=== PATIENT | male | born 1940 | race Caucasian/White ===

== ENCOUNTER 2016-04-26 08:12 | Emergency (ER) | payer MEDICARE, BC ==
[2016-04-26 08:53] LABS: Hematocrit 37.6 % (42.0-52.0); Hemoglobin 12.3 gm/dL (13.5-18.0); Mean Cell Volume 93.5 fl (78-100); Mean Corpuscular Hemoglobin 30.6 pg (27-31); Mean Corpuscular Hgb Conc 32.7 g/dl (32-36); Mean Platelet Volume 9.8 fl (6.0-9.5); Neutrophil # 5.4 K/mm3 (1.3-6.0); Neutrophil % 54.2 % (42-75.0); Platelet Count 195 K/mm3 (150-450); Red Blood Count 4.02 M/mm3 (4.7-6.0); Red Cell Distribution Width 13.2 % (11.5-14.0)
[2016-04-26 09:02] LABS: Prothrombin Time (Patient) 11.4 Seconds (9.4-11.4)
[2016-04-26 09:03] LABS: INR 1.1 INR (0.90-1.10); Partial Thrombolplastin Time 26.1 Seconds (24-32)
[2016-04-26 09:10] LABS: ALT 17 U/L (19-67); AST 11 U/L (0-48); Albumin * 3.2 gm/dl (3.4-5.0); Alkaline Phosphatase * 90 U/L (50-170); Anion Gap 9.3 mmol/L (6.8-13.8); BUN/Creatinine Ratio 17.2 (9.0-21.6); Bilirubin, Total 0.5 mg/dL (0.0-1.1); Blood Urea Nitrogen 21 mg/dL (6-23); Ca. Corrected For Albumin 8.9 mg/dL (8.4-10.2); Calcium * 8.6 mg/dL (7.9-10.9); Carbon Dioxide 30.3 mmol/L (24-32.6); Chloride 109 mmol/L (97-106); Glucose * 92 mg/dL (70-110); Potassium 3.6 mmol/L (3.4-4.6); Sodium 145 mmol/L (132-142); Total Protein 5.9 gm/dL (6.2-8.2); Troponin I Less than 0.017 ng/ml (0.00-0.10)
[2016-04-26] MEDS ORDERED: NITROGLYCERIN 0.4 MG/TAB BTL SL ONE (10:22)
[2016-04-26] MEDS ORDERED: ACETAMINOPHEN 325 MG TABLET PO ONE (10:51)
[2016-04-26] MEDS ORDERED: ACETAMINOPHEN 325 MG TABLET ONE (10:53)
[2016-04-26 11:55] VITALS: BP 105/54
--- NOTE | 2016-04-26 12:09 | ERNOTE ---
Dizziness ER Record Date of Service: 04/26/16 Presenting Symptoms: other - low blood pressure Time Seen by Provider: 04/26/16 08:45 Source: patient Exam Limitations: no limitations Immunizations: IMMUNIZATION HX Immunizations Up to Date Yes History of Influenza Vaccine No Hx Pneumococcal Vaccination No Allergies/Adverse Reactions: Allergies Allergy/AdvReac Type Severity Reaction Status Date / Time aspirin Allergy Severe Other Verified 01/28/16 07:52 codeine [Codeine] Allergy Verified 01/28/16 07:52 labetalol Allergy Verified 01/28/16 07:52 Sulfa (Sulfonamide AdvReac Mild Muscle Pain Verified 01/28/16 07:52 Antibiotics) [Sulfa(Sulfonamide Antibiotics)] Home Medications: HOME MEDICATIONS Azithromycin [Zithromax] 250 mg PO DAILY 02/09/13 [Last Taken 08/05/15] Calcium Carb & Citrate/Vit D3 [Calcium + Vitamin D3 Caplet] 2 each PO DAILY [Last Taken 08/05/15] Fluticasone Propionate [Flovent Diskus] 220 mcg IH BID 02/09/13 [Last Taken 11/12] Mometasone Furoate [Nasonex] 2 spray NS DAILY 02/09/13 [Last Taken 08/05/15] Montelukast Sodium 10 mg PO DAILY 02/09/13 [Last Taken 08/05/15] Multivit-Min/FA/Lycopene/Lut [Centrum Silver Tablet] 1 each PO DAILY 02/09/13 [ Last Taken 08/05/15] Omeprazole 20 mg PO DAILY 02/09/13 [Last Taken 08/05/15] Potassium Chloride [Potassium Chloride 40 meq/15ml Liquid] 10 meq PO DAILY 02/09 [Last Taken 08/05/15] Ubidecarenone [Co Q-10] 30 mg PO DAILY 02/09/13 [Last Taken 08/05/15] predniSONE [Prednisone] 5 mg PO DAILY 02/09/13 [Last Taken 08/05/15] Diltiazem ER 240 mg PO DAILY 08/06/15 [Last Taken 08/05/15] Flecainide Acetate 100 mg PO DAILY PRN 08/06/15 [Last Taken Unknown] Losartan Potassium 100 mg PO DAILY 08/06/15 [Last Taken 08/05/15] Omnipod 1 drop LEFTEYE HS 08/06/15 [Last Taken 08/05/15] Travatan Z 1 drop EACHEYE HS 08/06/15 [Last Taken 08/05/15] Vitamin E 1 tab PO DAILY 08/06/15 [Last Taken 08/05/15] - History of Present Illness Narrative: Patient presents to the ED for feeling dizzy, low blood pressure, lightheaded, chest discomfort. He states he was feeling well yesterday. This am got up and felt fairly well. Then he developed nausea, headache, pain in his gingiva and chest discomfort. He had a low BP. No cough. no abdominal pain. He denies focal N/T/W. Nothing seems to make this better or worse. He cannot recall ever having something like this before. Nothing seems ot make this better or worse. Timing and Duration: sudden onset Episodes lasting:: still present Worse/persistent since:: this am Noted on awakening:: No Severity: max: moderate Severity: currently: mild Associated Symptoms: Present: headache. Absent: vomiting, weakness Sense of movement: Present: none Modifying Factors - (Improves): Reports: nothing Review of Systems - Review of Systems Constitutional: Absent: fever Respiratory: Absent: shortness of breath Cardiology: Present: chest pain Gastrointestinal/Abdominal: Absent: vomiting Genitourinary: Absent: dysuria All Other Systems: All systems neg except as marked - Patient's Past Medical History Patient History - Medical: GERD, Glaucoma Patient History - Cardiac/Respiratory: Arrhythmias, Hypertension Patient History - Cancer: Melanoma Patient History - Surgical Procedures: Back Surgery, Cataracts, Other - Social History Living Situations: home Smoking Status: Never smoker Drug Use: none - Immunizations Immunizations Up to Date: Yes Hx Pneumococcal Vaccination: No History of Influenza Vaccine: No Physical Exam - Physical Exam General Appearance: Present: alert, no apparent distress Eye Exam: Normal inspection: bilateral, PERRL: bilateral Ears, Nose, Throat: Present: normal ENT inspection Neck: Present: normal inspection Respiratory: Present: no respiratory distress, normal breath sounds, no accessory muscle use, lungs clear Cardiovascular/Chest: Present: regular rate, rhythm Gastrointestinal/Abdominal: Present: normal bowel sounds, nontender, nondistended, soft Back Exam: Present: normal range of motion Extremity Exam: Present: normal inspection Neurological Exam: Present: alert, normal mood/affect, no motor/sensory deficits Skin Exam: Absent: skin rash ED Progress - Results and Orders Patient's Lab Results:: I have reviewed the patient's lab results. - Vital Signs Patient's Vital Signs:: I have reviewed the patient's vital signs. Vital Signs: Vital Signs 04/26/16 04/26/16 04/26/16 08:31 09:22 10:06 Temperature Pulse Rate 62 57 L 69 Respiratory 13 14 18 Rate Blood Pressure 114/53 102/49 131/70 O2 Sat by Pulse 100 98 96 Oximetry 04/26/16 04/26/16 04/26/16 10:35 11:51 11:52 Temperature 36.3 C L 36.3 C L Pulse Rate 83 83 98 Respiratory 18 18 18 Rate Blood Pressure 125/67 127/76 105/54 O2 Sat by Pulse 97 94 93 Oximetry - EKG EKG: other - NSR, rate 60. Non-specific ST/T wave changes, no clear evidence of STEMI. EKG read: Interp. by me - X-Ray X-Ray #1 X-Ray: chest Interpretation: Reviewed by me X-ray Comments: I reviewed official radiology report - CT/Ultrasound CT/Ultrasound Narrative: I reviewed official CT report - Progress/Reassessment Chief Complaint: Dizziness Progress Note-Subjective: 04/26/16 12:08 Francisca [address] no CT surgery glue maker bone (I called the facility). Given this Pt has been to [facility] before, I spoke with Dr Oliver who accepted patient in emergency transfer by air ambulance. Pt understands and is agreeable. 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
== END 2016-04-26 12:10 | disposition short-term general hospital (02) ==
LOC: ER 08:12
DX: I71.01 Dissection of thoracic aorta (principal); R07.9 Chest pain, unspecified